=== PATIENT | male | born 1955 | race Caucasian/White ===

== ENCOUNTER → 2020-11-17 | Outpatient (CLI) | payer MEDICARE | END | disposition home or self-care (01) | LOC: SHCH 08:59 | PROVIDERS: ATTEND Internal Medicine | DX: R60.9 Edema, unspecified (principal) | CPT/HCPCS: 93306; 93356 ==

== ENCOUNTER → 2020-11-29 | Outpatient (CLI) | payer MEDICARE | END | disposition home or self-care (01) | LOC: SHCH 08:27 | PROVIDERS: ATTEND Internal Medicine | DX: I87.2 Venous insufficiency (chronic) (peripheral) (principal) | CPT/HCPCS: 93970 ==

== ENCOUNTER → 2021-01-31 | Outpatient (CLI) | payer MEDICARE | END | disposition home or self-care (01) | LOC: SHCH 07:42 | PROVIDERS: ATTEND Internal Medicine Cardiovascular Disease | DX: I87.2 Venous insufficiency (chronic) (peripheral) (principal) | CPT/HCPCS: 93971 ==

== ENCOUNTER → 2021-02-07 | Outpatient (CLI) | payer MEDICARE | END | disposition home or self-care (01) | LOC: SHCH 08:19 | PROVIDERS: ATTEND Internal Medicine Cardiovascular Disease | DX: I87.2 Venous insufficiency (chronic) (peripheral) (principal); Z09 Encounter for follow-up examination after completed treatment for conditions other than malignant neoplasm | CPT/HCPCS: 93971 ==

== ENCOUNTER → 2021-03-17 | Outpatient (CLI) | payer MEDICARE | END | disposition home or self-care (01) | LOC: RAH 10:05 | PROVIDERS: ATTEND Internal Medicine | DX: I87.2 Venous insufficiency (chronic) (peripheral) (principal); R09.89 Other specified symptoms and signs involving the circulatory and respiratory systems; I65.23 Occlusion and stenosis of bilateral carotid arteries | CPT/HCPCS: 93880; 93971 ==

== ENCOUNTER → 2023-11-23 | Outpatient (CLI) | payer MEDICARE | END | disposition home or self-care (01) | LOC: RAH 08:26 | PROVIDERS: ATTEND Internal Medicine Cardiovascular Disease | DX: I87.2 Venous insufficiency (chronic) (peripheral) (principal); I87.1 Compression of vein; I73.9 Peripheral vascular disease, unspecified; I10 Essential (primary) hypertension; E66.9 Obesity, unspecified; Z68.35 Body mass index [BMI] 35.0-35.9, adult | CPT/HCPCS: 93970 ==

== ENCOUNTER → 2023-11-30 | Outpatient (CLI) | payer MEDICARE | END | disposition home or self-care (01) | LOC: SHCH 13:19 | PROVIDERS: ATTEND Internal Medicine Cardiovascular Disease | DX: I87.1 Compression of vein (principal); I73.9 Peripheral vascular disease, unspecified | CPT/HCPCS: 93970 ==

== ENCOUNTER → 2025-02-05 | Outpatient (CLI) | payer MEDICARE ==
--- NOTE | 2025-02-11 21:45 | HMCSR ---
APPROVED REPORT Bilateral Lower Extremity Venous Study for DVT., Venous Competence. Indications I87.1, I87.2, STAT ADD ON Double study Vein Imaging CFV (R): Normal flow, augmentation and compression. No evidence of DVT. 15.3mm 1106ms of reflux. SFJ (R): Normal flow, augmentation and compression. No evidence of DVT. FEM (R): Normal flow, augmentation and compression. No evidence of DVT. POP (R): Normal flow, augmentation and compression. No evidence of DVT. DFV (R): Normal flow, augmentation and compression. No evidence of DVT. PTV (R): Normal flow, augmentation and compression. No evidence of DVT. Peroneals (R): Normal flow, augmentation and compression. No evidence of DVT. CFV (L): Normal flow, augmentation and compression. No evidence of DVT. 12.2mm 1033ms of reflux. SFJ (L): Normal flow, augmentation and compression. No evidence of DVT. FEM (L): Normal flow, augmentation and compression. No evidence of DVT. POP (L): Normal flow, augmentation and compression. No evidence of DVT. DFV (L): Normal flow, augmentation and compression. No evidence of DVT. PTV (L): Normal flow, augmentation and compression. No evidence of DVT. Peroneals (L): Normal flow, augmentation and compression. No evidence of DVT. Technologist Impression Deep veins of bilateral lower extremities appear patent and compressible without thrombus. Deep Vein reflux seen in the RCFV and LCFV Superficial venous insufficiency seen in the RGSV and LGSV RGSV Junction 9.5mm 611ms thigh 3.6mm 328ms knee 5.4mm 267ms calf 2.7mm 300ms RSSV Prox 2.3mm 194ms Mid 2.2mm 167ms LGSV Junction 8.1mm 978ms thigh 4.0mm 0.0ms knee 2.3mm 267ms calf 2.5mm 233ms LSSV Prox (closed) Mid (closed) Conclusion Superficial venous insufficiency seen in the RGSV and LGSV No DVT Conclusion Superficial venous insufficiency seen in the RGSV and LGSV No DVT
--- NOTE | 2025-02-11 21:50 | HMCSR ---
APPROVED REPORT EXAM: Two-dimensional and M-mode echocardiogram with Doppler and color Doppler. INDICATION ICD: Edema, unspecified R60.9 2D Dimensions RVDd4.8 cmLVEF(%)60.3 (>50%)LVED Vol(simp.)143.0 mL IVSd0.9 (0.7-1.1cm)FS(%)33 %LVES Vol(simp.)70.0 mL LVDd5.6 (3.8-5.6cm)Ao Root(2D)3.5 (2.0-3.7cm)LVEF(%, simp.)51 % PWd1.1 (0.7-1.1cm)LVOT diam2.2 (1.8-2.4cm)LA ESV INDEX (BP)43.74 mL/m2 LVDs3.8 (2.5-4.0cm)IVC diam2.1 cm Aortic Valve AoV Vmax1.9 m/Edvin Peak GR14.9 mmHgLVOT Vmax1.1 m/s AoV VTI0.4 mAo Mean GR8.1 mmHgLVOT VTI0.25 m DELMI (VMAX)2.2 cm2AVA (VTI) 2.2 cm2 Mitral Valve MV E Vmax93.0 cm/sDECEL Asny656 ms MV A Vmax71.3 cm/sP 1/2 T62 ms E/A ratio1.3MVA (PHT)3.6 cm2 MR Max PG57 mmHg TDI E/E' Omwgng64.0E/E' Nyghiqj13.1 Pulmonary Valve PV Vmax1.1 m/sPV VTI0.24 mPV Mean GR2 mmHg PV Peak GR4.8 mmHgPI End Tanesha. Skyler 0.8 cm/s Tricuspid Valve TR Vmax1.6 m/sRAP (EST) 15 afBuQDDE56.8 mmHg TR Peak GR10.8 mmHg Left Ventricle Left ventricular cavity size is normal. There is normal LV segmental wall motion. There is normal lef t ventricular wall thickness. LVEF is 55-60%. Stage I diastolic dysfunction. Right Ventricle The right ventricle is dilated. The right ventricular systolic function is normal. Atria The left atrium is moderately dilated. The right atrium size is normal. Aortic Valve Aortic valve is trileaflet. Aortic valve leaflets are sclerotic but open well. No aortic regurgitatio n is present. There is no aortic valvular stenosis. Mitral Valve Mitral valve leaflets are sclerotic but open well. Mitral regurgitation is trace. There is no mitral valve stenosis. Tricuspid Valve The tricuspid valve leaflets appear normal. There is trace tricuspid regurgitation. Pulmonic Valve Pulmonic valve is not well visualized. There is trace pulmonic valvular regurgitation. Great Vessels The aortic root is normal in size. IVC is dilated and collapses <50% with inspiration. Pericardium No pericardial effusion. Conclusion Stage I diastolic dysfunction. There is normal LV segmental wall motion. The right ventricular systolic function is normal. Aortic valve is trileaflet. Aortic valve leaflets are sclerotic but open well. No pericardial effusion.
--- NOTE | 2025-02-11 21:53 | HMCSR ---
APPROVED REPORT Laterality: Bilateral Indications I87.1, I87.2, STAT ADD-ON double study. VELOCITY AND DOPPLER WAVEFORM ANALYSIS HOTEL AND DINING ROOM CASHIER (R) 234.3cm/sec, Biphasic, Moderate > 50%HOTEL AND DINING ROOM CASHIER (L) 183.2cm/sec, Biphasic, Prof Fem Art. (R) 122.3cm/sec, Biphasic, Prof Fem Art. (L) 153.0cm/sec, Biphasic, Fem Art Prox. (R) 186.0cm/sec, Biphasic, Fem Art Prox. (L) 158.7cm/sec, Biphasic, Fem Art Mid. (R) 151.7cm/sec, Biphasic, Fem Art Mid. (L) 93.8cm/sec, Biphasic, Fem Art Dist (R) 67.7cm/sec, Biphasic, Fem Art Dist. (L) 215.3cm/sec, Biphasic, Pop Art(AK) (R) 67.7cm/sec, Biphasic, Pop Art (AK) (L) 81.6cm/sec, Biphasic, Pop Art (Fossa)(R) 64.2cm/sec, Biphasic, Pop Art (Fossa) (L) 64.2cm/sec, Biphasic, Pop Art(BK) (R) 62.0cm/sec, Biphasic, Pop Art (BK) (L) 60.0cm/sec, Biphasic, JUDGE Dist. (R) 22.4cm/sec, Monophasic, JUDGE Dist. (L) 54.5cm/sec, Monophasic, Per Art Dist. (R) 18.6cm/sec, Monophasic, Per Art Dist. (L) 35.2cm/sec, Monophasic, MANFRED Dist. (R) 60.0cm/sec, Biphasic, MANFRED Dist. (L) 93.0cm/sec, Monophasic, Technologist Impression Diffuse atherosclerosis throughout the bilateral lower extremities. FEM-FEM Bypass appears patent with velocities of 134 - 274 cm/s Conclusion FEM-FEM Bypass appears patent with velocities of 134 - 274 cm/s Bilateral infra-popliteal PAD Conclusion FEM-FEM Bypass appears patent with velocities of 134 - 274 cm/s Bilateral infra-popliteal PAD
== END | disposition home or self-care (01) ==
LOC: SHCH 14:03
PROVIDERS: ATTEND Internal Medicine Cardiovascular Disease
DX: I08.0 Rheumatic disorders of both mitral and aortic valves (principal); I87.1 Compression of vein; I87.2 Venous insufficiency (chronic) (peripheral); I70.203 Unspecified atherosclerosis of native arteries of extremities, bilateral legs; R60.9 Edema, unspecified
CPT/HCPCS: 93306; 93925; 93970

== ENCOUNTER → 2025-11-09 | Outpatient (CLI) | payer MEDICARE ==
[~2025-11-09] MED LIST: IOHEXOL 350 MG/ML 100ML INFUS..BTL IV ONE; IOHEXOL-350 50ML VIAL IV ONE
--- NOTE | 2025-11-10 11:02 | HMCIMG ---
EXAMINATION: CT ANGIOGRAM OF ABDOMEN AND PELVIS AND RUNOFFS OF THE BILATERAL LOWER EXTREMITIES. CLINICAL HISTORY: Peripheral vascular disease, unspecified. COMPARISON: None provided. TECHNIQUE: MDCT angiogram of the abdominal aortic vessels was performed after administration of intravenous contrast. FINDINGS: Abdominal aorta is normal in size and caliber. There are atheromatous wall calcification of the aorta, its branches, iliac arteries and both lower limb arteries. There is no aneurysm or dissection. There is no stenosis or occlusion. There is a patent femoral artery to femoral artery bypass graft. Bilateral common iliac and external iliac veins stent in situ. The celiac and superior mesenteric arteries, are normal in caliber. There is no stenosis or occlusion. The angle between superior mesenteric artery and aorta is normal. Bilateral renal arteries are normal in caliber. There is no stenosis or occlusion. The inferior mesenteric artery is normal in caliber. Bifurcation morphology is normal. There is no stenosis or occlusion. The bilateral common iliac arteries are normal in caliber. No stenosis or occlusion. The bilateral external iliac arteries are normal in caliber. Their branches are normal, and the bilateral internal iliac arteries are normal; there is no stenosis or occlusion. Multilevel short segment narrowing of the bilateral mid and distal superficial femoral arteries causing 20-30% luminal narrowing. There is narrow caliber flow in the bilateral proximal posterior tibial arteries. No demonstrable flow in the mid and distal segment. The bilateral profunda femoris and popliteal arteries are normal in size and caliber. There is no stenosis or occlusion. The bilateral tibioperoneal trunks are normal. There is no stenosis or occlusion. The bilateral anterior tibial arteries are normal in size and caliber. There is no stenosis or occlusion. The bilateral peroneal arteries are normal in size and caliber. There is no stenosis or occlusion. There is subcutaneous edema in the leg and ankle region. Total right knee replacement status. Within the abdomen and pelvis, liver is normal in caliber with uniform decreased density; a rustically absent gallbladder; pancreas, spleen, adrenal glands, and kidneys are within normal limits; bowel loops are normal in caliber without evidence of obstruction, ileus, or bowel wall thickening, and the appendix is normal; and urinary bladder, prostate, and seminal vesicles appear normal in caliber. There is multilevel mild degenerative spondylosis of the spine. There is grade-II anterior listhesis of L5 in relation to S1. Posterior interpedicular screw fixation status between L2 and L3 levels. IMPRESSION: Atheromatous wall calcification of the aorta, its branches, iliac arteries and both lower limb arteries with multilevel short-segment narrowing of the bilateral mid and distal superficial femoral arteries with no demonstrable flow in both posterior tibial arteries [id number] peripheral vascular disease. Patent femoral artery to femoral artery bypass graft. /[place]
== END | disposition home or self-care (01) ==
LOC: RAH 07:41
PROVIDERS: ATTEND Internal Medicine Cardiovascular Disease
DX: I73.9 Peripheral vascular disease, unspecified (principal); I70.0 Atherosclerosis of aorta; M47.815 Spondylosis without myelopathy or radiculopathy, thoracolumbar region; M43.17 Spondylolisthesis, lumbosacral region; R60.0 Localized edema; Z96.651 Presence of right artificial knee joint
CPT/HCPCS: 75635; Q9967 ×2